=== PATIENT | male | born 1975 | race Caucasian/White ===

== ENCOUNTER 2020-02-20 08:35 | Emergency (ER) | payer MEDICAID ==
--- NOTE | 2020-02-20 09:24 | EDM.PDOC ---
ED HPI GENERAL MEDICAL PROBLEM - General Chief Complaint: Respiratory Problem Stated Complaint: SOB,WEAK,FEVER,COUGH,HEADACHE Time Seen by Provider: 02/20/20 09:14 - History of Present Illness INITIAL COMMENTS - FREE TEXT/NARRATIVE: 44-year-old male presents the emergency room with shortness of breath low-grade fevers significant fatigue. Over the last couple days patient has noticed worsening fatigue is difficult for him to walk uphill. He has had fevers as high as 100.8 at home. His appetite is diminished however he thinks he is drinking adequate fluids. He has body aches. The patient is not on any routine medications denies any significant medical problems. On my initial exam he was not complaining so much of chest pain but with further discussions he does have chest discomfort mostly with breathing and he has some degree of chest tightness. The patient has a 27-year history of smoking approximately 1 pack of cigarettes a day - Related Data Allergies Allergy/AdvReac Type Severity Reaction Status Date / Time No Known Allergies Allergy Verified 02/20/20 09:16 Home Meds: Home Meds . [No Known Home Meds] 02/20/20 [History] ED ROS GENERAL - Review of Systems Review Of Systems: See Below Constitutional: Reports: Fever, Malaise, Weakness, Fatigue HEENT: Reports: No Symptoms Respiratory: Reports: Shortness of Breath, Cough. Denies: Sputum Cardiovascular: Reports: No Symptoms Endocrine: Reports: No Symptoms GI/Abdominal: Reports: No Symptoms : Reports: No Symptoms Musculoskeletal: Reports: No Symptoms Skin: Reports: No Symptoms Neurological: Reports: No Symptoms ED EXAM, GENERAL - Physical Exam Exam: See Below Exam Limited By: No Limitations General Appearance: Alert, No Apparent Distress, Other (Saturation around 93% his pulse is in the mid 120s) EKG INTERPRETATION EKG Date: 02/20/20 Rhythm: Other (Sinus tachycardia) Rate (Beats/Min): 132 [place]: Normal P-Wave: Present QRS: Normal ST-T: Other (ST depression consistent with an LV strain pattern) QT: Prolonged (Borderline prolonged) Comparison: NA - No Prior EKG EKG Interpretation Comments: Abnormal Course - Vital Signs Last Recorded V/S: Last Vital Signs Temp 36.1 C 02/20/20 09:13 Pulse 137 H 02/20/20 12:45 Resp 20 02/20/20 12:45 BP 95/62 02/20/20 12:45 Pulse Ox 93 L 02/20/20 12:45 - Orders/Labs/Meds Orders: Active Orders 24 hr Category Date Time Status EKG Documentation Completion [RC] STAT Care 02/20/20 11:25 Active Ang Chest [CT] Stat Exams 02/20/20 11:38 Taken Chest 1V Frontal [CR] Stat Exams 02/20/20 09:30 Taken CORONAVIRUS COVID-19 PCR PHL Stat Lab 02/20/20 09:45 Stop Req CULTURE BLOOD [BC] Stat Lab 02/20/20 12:43 Received CULTURE BLOOD [BC] Stat Lab 02/20/20 12:50 Received Doxycycline [Vibramycin] 100 mg Med 02/20/20 14:30 Active Sodium Chloride 0.9% [Normal Saline] 100 ml IV ONETIME Lactated Ringers [Ringers, Lactated] 1,000 ml Med 02/20/20 09:45 Active IV ASDIRECTED Sodium Chloride 0.9% [Normal Saline] 1,000 ml Med 02/20/20 13:45 Active IV ASDIRECTED Sodium Chloride 0.9% [Normal Saline] 100 ml Med 02/20/20 12:00 Active IV ASDIRECTED cefTRIAXone [Rocephin] 2 gm Med 02/20/20 13:45 Active Sodium Chloride 0.9% [Normal Saline] 100 ml IV Q24H Blood Culture x2 Reflex Set [OM.PC] Stat Oth 02/20/20 11:28 Ordered Medication Orders Lactated Ringer's (Ringers, Lactated) 1,000 mls @ 125 mls/hr IV ASDIRECTED [facility] Last Infusion: 02/20/20 11:34 Dose: 999 mls/hr Documented by: Admin: 02/20/20 10:42 Dose: 125 mls/hr Documented by: DESHAWN Sodium Chloride (Normal Saline) 100 mls @ 60 mls/hr IV ASDIRECTED [facility] Last Admin: 02/20/20 12:53 Dose: 60 mls/hr Documented by: LEYDA Ceftriaxone Sodium 2 gm/ (Sodium Chloride) 100 mls @ 200 mls/hr IV Q24H [facility] Last Admin: 02/20/20 13:51 Dose: 200 mls/hr Documented by: DESHAWN Sodium Chloride (Normal Saline) 1,000 mls @ 100 mls/hr IV ASDIRECTED [facility] Last Admin: 02/20/20 13:51 Dose: 100 mls/hr Documented by: DESHAWN Doxycycline Hyclate 100 mg/ (Sodium Chloride) 100 mls @ 100 mls/hr IV ONETIME ONE Stop: 02/20/20 15:29 Last Admin: 02/20/20 14:50 Dose: 100 mls/hr Documented by: DESHAWN Labs: Laboratory Tests 02/20/20 02/20/20 02/20/20 Range/Units 09:45 09:45 09:45 WBC 18.84 H (4.23-9.07) K/mm3 RBC 5.50 (4.63-6.08) M/mm3 Hgb 17.7 H (13.7-17.5) gm/dl Hct 51.5 H (40.1-51.0) % MCV 93.6 H (79.0-92.2) fl MCH 32.2 (25.7-32.2) pg MCHC 34.4 (32.2-35.5) g/dl RDW Std Deviation 46.4 H (35.1-43.9) fL Plt Count 142 L (163-337) K/mm3 MPV 11.5 (9.4-12.3) fl Neutrophils % (Manual) 88 H (40-60) % Band Neutrophils % 0 (0-10) % Lymphocytes % (Manual) 8 L (20-40) % Atypical Lymphs % 0 % Monocytes % (Manual) 4 (2-10) % Eosinophils % (Manual) 0 L (0.8-7.0) % Basophils % (Manual) 0 L (0.2-1.2) Platelet Estimate Adequate RBC Morph Comment Normal D-Dimer, Quantitative (0.19-0.50) mg/L Sodium 132 L (136-145) mEq/L Potassium 3.6 (3.5-5.1) mEq/L Chloride 95 L (98-107) mEq/L Carbon Dioxide 23 (21-32) mEq/L Anion Gap 17.6 H (5-15) BUN 15 (7-18) mg/dL Creatinine 1.1 (0.7-1.3) mg/dL Est Cr Clr Drug Dosing 94.44 mL/min Estimated GFR (MDRD) > 60 (>60) mL/min BUN/Creatinine Ratio 13.6 L (14-18) Glucose 124 H (74-106) mg/dL Lactic Acid 2.5 H* (0.4-2.0) mmol/L Calcium 8.7 (8.5-10.1) mg/dL Ferritin (26-388) ng/ml Total Bilirubin 1.3 H (0.2-1.0) mg/dL AST 31 (15-37) U/L ALT 15 L (16-63) U/L Alkaline Phosphatase 68 (46-116) U/L Lactate Dehydrogenase 299 H (85-227) U/L Troponin I (0.00-0.056) ng/mL C-Reactive Protein 26.9 H* (<1.0) mg/dL NT-Pro-B Natriuret Pep (0-125) pg/mL Total Protein 7.0 (6.4-8.2) g/dl Albumin 2.8 L (3.4-5.0) g/dl Globulin 4.2 gm/dL Albumin/Globulin Ratio 0.7 L (1-2) SARS-CoV-2 RNA (THOMAS) (NEGATIVE) 02/20/20 02/20/20 02/20/20 Range/Units 09:45 09:45 09:45 WBC (4.23-9.07) K/mm3 RBC (4.63-6.08) M/mm3 Hgb (13.7-17.5) gm/dl Hct (40.1-51.0) % MCV (79.0-92.2) fl MCH (25.7-32.2) pg MCHC (32.2-35.5) g/dl RDW Std Deviation (35.1-43.9) fL Plt Count (163-337) K/mm3 MPV (9.4-12.3) fl Neutrophils % (Manual) (40-60) % Band Neutrophils % (0-10) % Lymphocytes % (Manual) (20-40) % Atypical Lymphs % % Monocytes % (Manual) (2-10) % Eosinophils % (Manual) (0.8-7.0) % Basophils % (Manual) (0.2-1.2) Platelet Estimate RBC Morph Comment D-Dimer, Quantitative 1.56 H (0.19-0.50) mg/L Sodium (136-145) mEq/L Potassium (3.5-5.1) mEq/L Chloride (98-107) mEq/L Carbon Dioxide (21-32) mEq/L Anion Gap (5-15) BUN (7-18) mg/dL Creatinine (0.7-1.3) mg/dL Est Cr Clr Drug Dosing mL/min Estimated GFR (MDRD) (>60) mL/min BUN/Creatinine Ratio (14-18) Glucose (74-106) mg/dL Lactic Acid (0.4-2.0) mmol/L Calcium (8.5-10.1) mg/dL Ferritin 245 (26-388) ng/ml Total Bilirubin (0.2-1.0) mg/dL AST (15-37) U/L ALT (16-63) U/L Alkaline Phosphatase (46-116) U/L Lactate Dehydrogenase (85-227) U/L Troponin I 1.941 H* (0.00-0.056) ng/mL C-Reactive Protein (<1.0) mg/dL NT-Pro-B Natriuret Pep (0-125) pg/mL Total Protein (6.4-8.2) g/dl Albumin (3.4-5.0) g/dl Globulin gm/dL Albumin/Globulin Ratio (1-2) SARS-CoV-2 RNA (THOMAS) (NEGATIVE) 02/20/20 02/20/20 02/20/20 Range/Units 11:40 12:50 13:59 WBC (4.23-9.07) K/mm3 RBC (4.63-6.08) M/mm3 Hgb (13.7-17.5) gm/dl Hct (40.1-51.0) % MCV (79.0-92.2) fl MCH (25.7-32.2) pg MCHC (32.2-35.5) g/dl RDW Std Deviation (35.1-43.9) fL Plt Count (163-337) K/mm3 MPV (9.4-12.3) fl Neutrophils % (Manual) (40-60) % Band Neutrophils % (0-10) % Lymphocytes % (Manual) (20-40) % Atypical Lymphs % % Monocytes % (Manual) (2-10) % Eosinophils % (Manual) (0.8-7.0) % Basophils % (Manual) (0.2-1.2) Platelet Estimate RBC Morph Comment D-Dimer, Quantitative (0.19-0.50) mg/L Sodium (136-145) mEq/L Potassium (3.5-5.1) mEq/L Chloride (98-107) mEq/L Carbon Dioxide (21-32) mEq/L Anion Gap (5-15) BUN (7-18) mg/dL Creatinine (0.7-1.3) mg/dL Est Cr Clr Drug Dosing mL/min Estimated GFR (MDRD) (>60) mL/min BUN/Creatinine Ratio (14-18) Glucose (74-106) mg/dL Lactic Acid 2.2 H* (0.4-2.0) mmol/L Calcium (8.5-10.1) mg/dL Ferritin (26-388) ng/ml Total Bilirubin (0.2-1.0) mg/dL AST (15-37) U/L ALT (16-63) U/L Alkaline Phosphatase (46-116) U/L Lactate Dehydrogenase (85-227) U/L Troponin I (0.00-0.056) ng/mL C-Reactive Protein (<1.0) mg/dL NT-Pro-B Natriuret Pep 69718 H (0-125) pg/mL Total Protein (6.4-8.2) g/dl Albumin (3.4-5.0) g/dl Globulin gm/dL Albumin/Globulin Ratio (1-2) SARS-CoV-2 RNA (THOMAS) Negative (NEGATIVE) Meds: Medications Generic Name Dose Route Start Last Admin Trade Name Freq PRN Reason Stop Dose Admin Lactated Ringer's 1,000 mls @ 125 mls/hr 02/20/20 09:45 02/20/20 11:34 Ringers, Lactated IV 999 mls/hr ASDIRECTED CLARISSE Infusion Sodium Chloride 100 mls @ 60 mls/hr 02/20/20 12:00 02/20/20 12:53 Normal Saline IV 60 mls/hr ASDIRECTED [facility]IS[facility] Administration Ceftriaxone Sodium 2 gm/ 100 mls @ 200 mls/hr 02/20/20 13:45 02/20/20 13:51 Sodium Chloride IV 200 mls/hr Q24H [facility] Administration Sodium Chloride 1,000 mls @ 100 mls/hr 02/20/20 13:45 02/20/20 13:51 Normal Saline IV 100 mls/hr ASDIRECTED [facility]IS[facility] Administration Doxycycline Hyclate 100 mg/ 100 mls @ 100 mls/hr 02/20/20 14:30 02/20/20 14:50 Sodium Chloride IV 02/20/20 15:29 100 mls/hr ONETIME ONE Administration Discontinued Medications Generic Name Dose Route Start Last Admin Trade Name Marcia PRN Reason Stop Dose Admin Aspirin 324 mg 02/20/20 14:29 02/20/20 14:39 Aspirin PO 02/20/20 14:30 324 mg ONETIME ONE Administration Lactated Ringer's 500 mls @ 999 mls/hr 02/20/20 09:36 02/20/20 10:00 Ringers, Lactated IV 02/20/20 10:06 999 mls/hr .BOLUS ONE Administration Lactated Ringer's 1,000 mls @ 999 mls/hr 02/20/20 11:07 02/20/20 11:34 Ringers, Lactated IV 02/20/20 12:07 999 mls/hr .BOLUS ONE Administration Iopamidol 100 ml 02/20/20 11:48 02/20/20 12:52 Isovue-370 (76%) IVPUSH 02/20/20 11:49 100 ml ONETIME ONE Administration Sodium Chloride 10 ml 02/20/20 11:48 02/20/20 12:52 Saline Flush FLUSH 02/20/20 11:49 10 ml ONETIME ONE Administration - Re-Assessments/Exams Free Text/Narrative Re-Assessment/Exam: 02/20/20 14:38 Labs reviewed d-dimer is elevated his picture could be consistent with COVID but it is not diagnostic is COVID screen however was negative. With the elevated d-dimer and the elevated troponin went ahead obtained a CTA that does not show pulmonary embolism but shows multilobular consolidations concerning for multilobular pneumonia atypical variants including viral etiologies are possible according to the radiologist. He is got small bilateral pleural effusions and also of note is the patient has significant aortic valve calcifications. There are no beds available in [place], our hospitalist was not comfortable keeping the patient with a troponin. I discussed the patient's case with the hospital coordinator at [facility] who thought they could accept the patient I initially discussed the situation with Dr. Denton the hospitalist who thought the case needed be discussed with cardiology and then the patient probably should come through the emergency room. The patient's case was discussed with Dr. Smith photographic supervisor who agrees to consult on the patient he cautioned against anticoagulation. And thought the patient needs to be treated from a multifactorial position including COVID. And thought the troponin could be related to myocarditis seen with COVID. The patient's case was then discussed with Dr. Morgan, and the emergency room is kind enough to accept the patient he did recommend starting the patient on aspirin. The patient has received 2 g of Rocephin after blood cultures were obtained and he will receive 100 mg of IV doxycycline at this point. EKG was discussed with cardiology and Dr. Morgan in the emergency room. As was the CT results and lab work. Dr. Morgan accepted the patient at 14:28 02/20/20 14:56 proBNP is elevated 33,210 Departure - Departure Time of Disposition: 14:28 Disposition: DC/Tfer to [facility] 02 Clinical Impression: Pneumonia, Elevated troponin, Hypoxia - Discharge Information Referrals: PCP,Not In Area [Primary Care Provider] - Forms: ED Department Discharge Sepsis Event Note (ED) - Focused Exam Vital Signs: Vital Signs Temp Pulse Resp BP Pulse Ox 02/20/20 12:45 137 H 20 95/62 93 L 02/20/20 12:30 132 H 18 149/127 H 93 L 02/20/20 10:45 130 H 20 84/75 L 90 L 02/20/20 10:30 124 H 20 84/74 L 93 L 02/20/20 09:13 36.1 C 128 H 20 98/86 94 L - My Orders Last 24 Hours: My Active Orders 02/20/20 09:30 Chest 1V Frontal [CR] Stat 02/20/20 09:45 CORONAVIRUS COVID-19 PCR PHL Stat Lactated Ringers [Ringers, Lactated] 1,000 ml IV ASDIRECTED 02/20/20 11:25 EKG Documentation Completion [RC] STAT 02/20/20 11:28 Blood Culture x2 Reflex Set [OM.PC] Stat 02/20/20 11:38 Ang Chest [CT] Stat 02/20/20 12:00 Sodium Chloride 0.9% [Normal Saline] 100 ml IV ASDIRECTED 02/20/20 12:43 CULTURE BLOOD [BC] Stat 02/20/20 12:50 CULTURE BLOOD [BC] Stat 02/20/20 13:45 Sodium Chloride 0.9% [Normal Saline] 1,000 ml IV ASDIRECTED cefTRIAXone [Rocephin] 2 gm Sodium Chloride 0.9% [Normal Saline] 100 ml IV Q24H 02/20/20 14:30 Doxycycline [Vibramycin] 100 mg Sodium Chloride 0.9% [Normal Saline] 100 ml IV ONETIME - Assessment/Plan Last 24 Hours: My Active Orders 02/20/20 09:30 Chest 1V Frontal [CR] Stat 02/20/20 09:45 CORONAVIRUS COVID-19 PCR PHL Stat Lactated Ringers [Ringers, Lactated] 1,000 ml IV ASDIRECTED 02/20/20 11:25 EKG Documentation Completion [RC] STAT 02/20/20 11:28 Blood Culture x2 Reflex Set [OM.PC] Stat 02/20/20 11:38 Ang Chest [CT] Stat 02/20/20 12:00 Sodium Chloride 0.9% [Normal Saline] 100 ml IV ASDIRECTED 02/20/20 12:43 CULTURE BLOOD [BC] Stat 02/20/20 12:50 CULTURE BLOOD [BC] Stat 02/20/20 13:45 Sodium Chloride 0.9% [Normal Saline] 1,000 ml IV ASDIRECTED cefTRIAXone [Rocephin] 2 gm Sodium Chloride 0.9% [Normal Saline] 100 ml IV Q24H 02/20/20 14:30 Doxycycline [Vibramycin] 100 mg Sodium Chloride 0.9% [Normal Saline] 100 ml IV ONETIME
[2020-02-20] MEDS ORDERED: Lactated Ringers 500 ML IV ONE (09:36)
[2020-02-20] MEDS ORDERED: Lactated Ringers 1,000 ML IV SCH (09:45)
[2020-02-20] MEDS ORDERED: Lactated Ringers 1,000 ML IV ONE (11:07)
[2020-02-20] MEDS ORDERED: Iopamidol 755 Mg/ML 100 ML Bottle IVPUSH ONE (11:48)
[2020-02-20] MEDS ORDERED: Sodium Chloride 0.9% 10 ML Syringe FLUSH ONE (11:48)
[2020-02-20] MEDS ORDERED: Sodium Chloride 0.9% 100 ML IV SCH (12:00)
[2020-02-20] MEDS ORDERED: Sodium Chloride 0.9% 1,000 ML IV SCH (13:45)
[2020-02-20] MEDS ORDERED: cefTRIAXone 2 GM in Sodium Chloride 0.9% 100 ML IV SCH (13:45)
[2020-02-20] MEDS ORDERED: Aspirin 81 MG Tab.Chew PO ONE (14:29)
[2020-02-20] MEDS ORDERED: Doxycycline 100 MG in Sodium Chloride 0.9% 100 ML IV ONE (14:30)
--- NOTE | 2020-03-24 12:19 | CR ---
PROCEDURE INFORMATION: Exam: XR Chest, 1 View Exam date and time: 02/20/2020 9:19 AM Age: 44 years old Clinical indication: Patient HX: Cough, suspect covid TECHNIQUE: Imaging protocol: XR of the chest Views: 1 view. COMPARISON: No relevant prior studies available. FINDINGS: Lungs: Multifocal ground-glass peripheral airspace opacity is present. Findings highly concerning for atypical pneumonia. COVID-19 pneumonia is certainly possible. Pleural space: Unremarkable. No pleural effusion. No pneumothorax. Heart/Mediastinum: Unremarkable. No cardiomegaly. Bones/joints: Unremarkable. IMPRESSION: Multifocal peripheral ground-glass opacity. Findings highly concerning for COVID-19 pneumonia. Thank you for allowing us to participate in the care of your patient. Dictated and Authenticated by: Bam Humphrey MD 03/24/2020 12:23 PM Central Time ([place] & [place]) [facility]
--- NOTE | 2020-03-24 12:20 | CT ---
"PROCEDURE INFORMATION: Exam: CT Chest With Contrast Exam date and time: 02/20/2020 11:38 AM Age: 44 years old Clinical indication: Abnormal findings; Abnormal diagnostic tests; Patient HX: Elevated d-dimer, chest tightness TECHNIQUE: Imaging protocol: Computed tomography of the chest with intravenous contrast. Radiation optimization: All CT scans at this facility use at least one of these dose optimization techniques: automated exposure control; mA and/or kV adjustment per patient size (includes targeted exams where dose is matched to clinical indication); or iterative reconstruction. COMPARISON: CR Chest 1V Frontal 02/20/2020 9:19 AM FINDINGS: Lungs: Lungs demonstrate multifocal areas of consolidation within both lungs. Finding is concerning for multilobar pneumonia including atypical variants. Pleural space: Small to moderate size bilateral pleural effusions are present. Heart: There is significant calcification in the region of the aortic valve. This is unusual for a patient of this age. No pericardial effusion. Aorta: Unremarkable. No aortic aneurysm. Lymph nodes: Unremarkable. No enlarged lymph nodes. Bones/joints: Unremarkable. No acute fracture. Soft tissues: Unremarkable. IMPRESSION: 1. Multilobar nodular consolidation. Finding is concerning for multilobar pneumonia. Atypical variants including viral etiologies are possible. 2. Small to moderate size bilateral pleural effusions. Pleural effusions are not typically found in COVID-19 infection. Other sources of infection should be considered. COVID-19 remains possible. 3. No pulmonary embolism present. GRACIELA ESPINO | Final Radiology Report CONFIDENTIALITY STATEMENT This report is intended only for use by the referring physician, and only in accordance with law. If you received this in error, call [phone]. Page 2 of 2 4. Note is made of significant aortic valve calcification. This is unusual for patient of this age and could represent significant aortic valvular abnormality. Thank you for allowing us to participate in the care of your patient. Dictated and Authenticated by: Bam Humphrey MD 03/24/2020 12:24 PM Central Time ([place] & [place]) [facility]"
== END 2020-02-20 15:45 ==
LOC: JD.ED 08:35
DX: J18.9 Pneumonia, unspecified organism (principal); R09.02 Hypoxemia; R79.89 Other specified abnormal findings of blood chemistry; Z20.828 Contact with and (suspected) exposure to other viral communicable diseases
CPT/HCPCS: 36415; 71045; 71275; 80053; 82728; 83605; 83615; 83880; 84484; 85007; 85027; 85379; 86140; 87040; 87635; 93005; 96361; 96365; 96367; 99285; A9270; J0696; J3490; J7030; J7050; J7120; Q9967; 93010; 99283; U0002